=== PATIENT | male | born 1970 | race Caucasian/White ===

== ENCOUNTER 2016-08-31 00:04 | Emergency (ER) | payer BC ==
[~2016-08-31] VITALS: Ht 182.9 cm; Wt 84.5 kg
[2016-08-31] MEDS ORDERED: LIDOCAINE 1%, 20ML ONE (00:53)
[2016-08-31] MEDS ORDERED: LIDOCAINE 1%, 10ML INFIL ONE (01:00)
[2016-08-31] MEDS ORDERED: BACITRACIN ZINC OINT 500U/GM, 0.9 GM ONE ×2 (02:29→02:30)
[2016-08-31 04:11] VITALS: BP 98/53
== END 2016-08-31 04:13 | disposition home or self-care (01) ==
LOC: ED 00:25
DX: S01.112A Laceration without foreign body of left eyelid and periocular area, initial encounter (principal); F10.129 Alcohol abuse with intoxication, unspecified; W01.0XXA Fall on same level from slipping, tripping and stumbling without subsequent striking against object, initial encounter; Y93.89 Activity, other specified; Y92.89 Other specified places as the place of occurrence of the external cause; Y99.8 Other external cause status
CPT/HCPCS: 12013; 36415; 70450; 72125; 85610

== ENCOUNTER 2018-06-20 03:05 | Emergency (ER) | payer BC ==
[~2018-06-20] VITALS: Ht 182.9 cm; Wt 84.0 kg
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
--- NOTE | 2018-06-20 03:29 | NUR ---
PT TO CT
[2018-06-20] MEDS ORDERED: LIDOCAINE 1%, 10ML INFIL ONE (03:30)
--- NOTE | 2018-06-20 03:46 | NUR ---
PT BACK TO ROOM FROM CT.
--- NOTE | 2018-06-20 03:47 | NUR ---
PT AMB TO BR WITH STEADY GAIT.
[2018-06-20] MEDS ORDERED: LIDOCAINE-MPF 1%, 2ML ONE (03:55)
[2018-06-20] MEDS ORDERED: LIDOCAINE 1%-EPI 1:100K, 20ML ONE (04:43)
--- NOTE | 2018-06-20 04:59 | NUR ---
PA APPLIED SUTURES ON WOUND. PT TOLERATED WELL.
[2018-06-20 05:35] VITALS: BP 125/83
--- NOTE | 2018-06-20 05:38 | NUR ---
EMT APPLIED DRESSING ON WOUND. PT TOLERATED WELL. PT'S AOX4. RESPS EVEN AND UNLABORED.
== END 2018-06-20 06:08 | disposition home or self-care (01) ==
LOC: ED 03:59
DX: S01.81XA Laceration without foreign body of other part of head, initial encounter (principal); S01.312A Laceration without foreign body of left ear, initial encounter; F10.121 Alcohol abuse with intoxication delirium; R41.82 Altered mental status, unspecified; Y04.0XXA Assault by unarmed brawl or fight, initial encounter; Y93.01 Activity, walking, marching and hiking; Y92.410 Unspecified street and highway as the place of occurrence of the external cause; Y99.8 Other external cause status
CPT/HCPCS: 13131; 13151; 70450; 99285

== ENCOUNTER 2018-10-13 15:37 | Emergency (ER) | payer BC ==
[~2018-10-13] VITALS: Ht 177.8 cm; Wt 82.0 kg
[2018-10-14 04:32] VITALS: BP 133/81
== END 2018-10-14 04:34 | disposition home or self-care (01) ==
LOC: ED 21:43
DX: F10.129 Alcohol abuse with intoxication, unspecified (principal)
CPT/HCPCS: 36415; 80053; 80307; 85025; 99283; Q0162